=== PATIENT | female | born 1955 | race Caucasian/White ===

== ENCOUNTER 2016-10-30 15:22 | Emergency (ER) | payer SELFPAY ==
--- NOTE | 2016-10-30 19:29 | RAD ---
INDICATION: Knee pain x2 weeks after striking knee on door. COMPARISON: None TECHNIQUE: 4 view radiograph of the left knee. FINDINGS: The visualized bones are well-corticated and properly aligned. The joint spaces are properly maintained. There is no radiographic evidence of joint effusion. There is no acute fracture, dislocation or other focal bony abnormality. IMPRESSION: Normal knee radiograph as described above. If the patient's symptoms persist, follow-up imaging is recommended.
[2016-10-30] MEDS ORDERED: Naproxen TAB* 250 MG PO ONE (19:36)
--- NOTE | 2016-10-30 19:44 | ED ---
Lower Extremity - HPI Summary HPI Summary: 61 female presents with complaints of left anterior knee pain that began after hitting it against a door with a metal hinge sticking out, striking her left knee, that happened 2 weeks ago while at work. Patient states it hurt after she hit it and improved over the next couple of days, however never improved fully as it has still be causing her pain. Patient states the pain worsens when laying down in bed. She has been taking Advil in the morning with relief. Admits to swelling that has since improved. Denies bruising. Is able to bear weight and walk, however it does make the pain worse. Admits to some chronic knee pain bilaterally. Does not follow up with a doctor annually. Denies any known PMHx. Denies ankle or hip pain. Did not hit head or LOC. No other complaints at this time. Denies numbness/tingling. - History of Current Complaint Chief Complaint: EDExtremityLower Stated Complaint: LEFT KNEE INJURY-WORK INJURY Time Seen by Provider: 10/30/16 16:40 Hx Obtained From: Patient Mechanism Of Injury: Blunt Trauma - hit on metal hinge on a door Onset of Pain: Immediate, Post Accident Onset/Duration: Still Present - 2 weeks ago Severity Initially: Moderate Severity Currently: None Pain Intensity: 0 Pain Scale Used: 0-10 Numeric Timing: Intermittent Location: Is Discrete @ - left knee Character Of Pain: Dull, Aching Associated Signs And Symptoms: Positive: Swelling Aggravating Factor(s): Standing, Ambulation Alleviating Factor(s): Rest Able to Bear Weight: Yes Related History: Occupational Injury - Allergies/Home Medications Allergies/Adverse Reactions: Allergies Allergy/AdvReac Type Severity Reaction Status Date / Time No Known Allergies Allergy Verified 10/30/16 19:53 PMH/Surg Hx/FS Hx/Imm Hx Endocrine/Hematology History: Denies: Hx Anticoagulant Therapy, Hx Diabetes Cardiovascular History: Denies: Hx Hypertension Respiratory History: Denies: Hx Asthma - Surgical History Surgery Procedure, Year, and Place: none - Immunization History Immunizations Up to Date: Yes Infectious Disease History: No Infectious Disease History: Denies: Traveled Outside the [place] in Last 30 Days - Family History Known Family History: Positive: None - Social History Alcohol Use: None Substance Use Type: Reports: None Smoking Status (MU): Never Smoked Tobacco Review of Systems Constitutional: Negative Cardiovascular: Negative Respiratory: Negative Gastrointestinal: Negative Positive: Arthralgia, Myalgia, Edema - left knee Skin: Negative Neurological: Negative All Other Systems Reviewed And Are Negative: Yes Physical Exam Triage Information Reviewed: Yes Vital Signs On Initial Exam: Initial Vitals Temp Pulse Resp BP Pulse Ox 98.6 F 91 18 158/80 97 10/30/16 15:35 10/30/16 15:35 10/30/16 15:35 10/30/16 15:35 10/30/16 15:35 elevated BP noted. last bp 147/82. Patient was recommended to have re-check at PCP within 2 weeks. Vital Signs Reviewed: Yes Appearance: Positive: Well-Appearing, No Pain Distress, Well-Nourished Skin: Positive: Warm, Skin Color Reflects Adequate Perfusion, Dry. Negative: Cold, Numb, Cyanosis @, Pale, Erythema @ Head/Face: Positive: Normal Head/Face Inspection Eyes: Positive: Normal, Conjunctiva Clear ENT: Positive: Normal ENT inspection, Hearing grossly normal Neck: Positive: Supple, Nontender Respiratory/Lung Sounds: Positive: Clear to Auscultation, Breath Sounds Present. Negative: Rales, Rhonchi, Wheezes Cardiovascular: Positive: Normal, RRR, Pulses are Symmetrical in both Upper and Lower Extremities - 2+ pedal b/l. Negative: Murmur, Rub, Leg Edema Left, Leg Edema Right Abdomen Description: Positive: Nontender, Soft Bowel Sounds: Positive: Present Musculoskeletal: Positive: Normal, Strength/ROM Intact, Pain @ - anterior left knee over area of patellar tendon and laterally on palpation, minimal. no ecchymosis or edema noted. no erythema or open wounds. no crepitus or obvious deformity noted. no step-off. patella and patellar tendon intact. (-) unger test.. Negative: Limited @, Interruption @, Geno Sign Left, Geno Sign Right, Edema Left, Edema Right Neurological: Positive: Normal, Sensory/Motor Intact - sensation intact, Alert, Oriented to Person Place, Time, CN Intact II-III, Reflexes Intact - not assessed on left patella, NV Bundle Intact Distally, Normal Gait Psychiatric: Positive: Normal AVPU Assessment: Alert Diagnostics - Vital Signs Vital Signs Temp Pulse Resp BP Pulse Ox 10/30/16 15:37 98.6 F 90 18 160/73 99 10/30/16 15:35 98.6 F 91 18 158/80 97 - Laboratory Lab Statement: Any lab studies that have been ordered have been reviewed, and results considered in the medical decision making process. - Radiology left knee Xray Interpretation: No Acute Changes - Normal knee radiograph as described above. If the patient's symptoms persist, follow-up imaging is recommended. Radiology Interpretation Completed By: Radiologist Lower Extremity Course/Dx - Course Course Of Treatment: patient was given naproxen while in ED. pain was minimal. X -ray obtained and negative. Patient agreed with naproxen, ice and rest. Follow up with PCP for further imaging and evaluation if symptoms persist. Aware of worsening signs and symptoms to watch out for. No concern for any emergent issues at this time. Contusion versus tendonitis from injury versus chronic. - Diagnoses Differential Diagnosis/HQI/PQRI: Positive: Arthritis, Contusion, Dislocation, Fracture (Closed), Sprain, Strain, Tendonitis Provider Diagnoses: Knee pain, left, Tendonitis of left knee Discharge - Discharge Plan Condition: Stable Disposition: HOME Prescriptions: Naproxen TAB* [Naprosyn 375 mg TAB*] 375 mg PO BID #30 tab Patient Education Materials: Knee Pain (ED), Patellar Tendinitis (ED) Forms: *Work Release Referrals: No Primary Care Phys,NOPCP [Primary Care Provider] - [facility] [Outside] Additional Instructions: Take prescribed medication as directed for pain and inflammation. Rest, Ice and elevate the knee multiple times daily, 20 minutes on and 20 minutes off. Try applying heat after 3-5 days, alternating. Follow up with primary care provider within 2 weeks for further imaging and evaluation. If symptoms worsen or new symptoms develop please return or seek medical attention promptly.
[2016-10-30 19:56] VITALS: BP 147/82
== END 2016-10-30 20:23 | disposition home or self-care (01) ==
LOC: ED 15:22
DX: M76.9 Unspecified enthesopathy, lower limb, excluding foot (principal); M25.562 Pain in left knee; W22.8XXA Striking against or struck by other objects, initial encounter; Y92.9 Unspecified place or not applicable
CPT/HCPCS: 99282; A9270-GY

== ENCOUNTER 2019-01-17 16:38 | Observation (INO) | payer BC, OTHER ==
[2019-01-17] MEDS ORDERED: Nitroglycerin TAB 0.4 MG* 0.4 MG TAB SL PRN (16:58)
[2019-01-17] MEDS ORDERED: Aspirin 81 mg CHEW TAB* 81 MG TAB.CHEW PO ONE (16:58)
--- NOTE | 2019-01-17 17:03 | ED ---
HPI Chest Pain - HPI Summary HPI Summary: Pt is a 63 y/o F presenting to the ED with a chief complaint of chest pain in her upper sternal region that began around 1200. She describes it as pressure, and it is accompanied by a tingling sensation in her R arm. She denies SOB, diaphoresis, nausea, myalgia or edema in her legs, as well as recent surgeries or travel. - History of Current Complaint Chief Complaint: EDChestWallPain Time Seen by Provider: 01/17/19 16:49 Hx Obtained From: Patient Onset/Duration: Started Hours Ago, Still Present Timing: Constant, Lasting Hours Initial Severity: Mild Current Severity: None Pain Intensity: 0 Pain Scale Used: 0-10 Numeric Chest Pain Location: Diffuse, Upper Sternal Chest Pain Radiates: No Character: Pressure/Squeezing Aggravating Factor(s): Nothing Alleviating Factor(s): Nothing Associated Signs and Symptoms: Positive: Chest Pain, Tingling - R arm. Negative : Shortness of Breath, Diaphoresis, Nausea, Calf Pain/Swelling - Allergy/Home Medications Allergies/Adverse Reactions: Allergies Allergy/AdvReac Type Severity Reaction Status Date / Time No Known Allergies Allergy Verified 10/30/16 19:53 Home Medications: Home Medications Allopurinol 100 mg PO DAILY 01/17/19 [History Confirmed 01/17/19] Naproxen TAB* [Naprosyn 375 mg TAB*] 375 mg PO BID PRN 01/17/19 [History Confirmed 01/17/19] PMH/Surg Hx/FS Hx/Imm Hx Previously Healthy: Yes Endocrine/Hematology History: Denies: Hx Anticoagulant Therapy, Hx Diabetes Cardiovascular History: Denies: Hx Hypertension Respiratory History: Denies: Hx Asthma Musculoskeletal History: Reports: Hx Gout - Surgical History Surgery Procedure, Year, and Place: none Infectious Disease History: No Infectious Disease History: Denies: Traveled Outside the [place] in Last 30 Days - Family History Known Family History: Positive: Other - father had stroke - Social History Alcohol Use: None Hx Substance Use: No Substance Use Type: Reports: None Hx Tobacco Use: No Smoking Status (MU): Never Smoked Tobacco Review of Systems Negative: Skin Diaphoresis Positive: Chest Pain Negative: Shortness Of Breath Negative: Nausea Negative: Myalgia, Edema Positive: Paresthesia - R arm All Other Systems Reviewed And Are Negative: Yes Physical Exam Triage Information Reviewed: Yes Vital Signs On Initial Exam: Initial Vitals Temp Pulse Resp BP Pulse Ox 99.2 F 101 18 164/109 97 01/17/19 16:38 01/17/19 16:38 01/17/19 16:38 01/17/19 16:38 01/17/19 16:38 Vital Signs Reviewed: Yes Diagnostics - Vital Signs Vital Signs Temp Pulse Resp BP Pulse Ox 01/17/19 16:38 99.2 F 101 18 164/109 97 - Laboratory Result Diagrams: 01/17/19 17:13 01/17/19 17:13 Lab Statement: Any lab studies that have been ordered have been reviewed, and results considered in the medical decision making process. - Radiology CXR Radiology Interpretation Completed By: Radiologist Summary of Radiographic Findings: 1. Minimal RIGHT basilar atelectasis. No evidence for pulmonary edema. ED physician has reviewed this report. - EKG 1943 Cardiac Rate: NL - 91bpm EKG Rhythm: Sinus Rhythm ST Segment: Non-Specific Ectopy: None Summary of EKG Findings: EKG at 1644 shows NSR at 91bpm with nml intervals, T- wave inversion in lead III, and a Q wave in lead III. 1644 Cardiac Rate: NL - 91bpm EKG Rhythm: Sinus Rhythm ST Segment: Non-Specific Ectopy: None Summary of EKG Findings: EKG at 1644 shows NSR at 91bpm with nml intervals, T- wave inversion in lead III, and a Q wave in lead III. 1828 Cardiac Rate: NL - 99bpm EKG Rhythm: Sinus Rhythm ST Segment: Non-Specific Ectopy: None EKG Comparison: No Significant Change Summary of EKG Findings: EKG at 1828 shows NSR at 99bpm with T wave inversion in lead III, unchanged from initial EKG. Re-Evaluation - Re-Evaluation 1st re-eval Re-Evaluation Time: 17:40 Change: Improved Comment: Pt's chest pain has improved slightly after 1 ntg, she is now c/o nausea. Will give Zofran. 1936 Re-Evaluation Time: 19:37 Change: Improved Comment: Pt is completely asymptomatic. Given her heart score of four, I offered her inpatient admission. She is unsure and would like to think about it. 2nd re-eval Re-Evaluation Time: 19:37 Change: Unchanged Comment: Pt is completely asymptomatic. Given her heart score of four, I offered her inpatient admission. She is unsure and would like to think about it. 3rd re-eval Re-Evaluation Time: 20:05 Change: Unchanged Comment: I convinced the pt to stay as inpatient at [facility] [place]. She remains tachycardic. Chest Pain Course/Dx - Course Course Of Treatment: Patient is here with chest pain. Patient had chest pain upon arrival and resolved with nitroglycerin. Patient no evidence of STEMI on EKG with a normal serial EKG and troponin. Patient had a negative d-dimer for blood clot. Patient no risk factors for PE. Patient had a heart score of 4 so she was admitted to the hospital for further evaluation. Patient did become tachycardic while in the ED and was given 1 L fluids. - Diagnoses Provider Diagnoses: Tachycardia, Chest pain, Right arm numbness - Provider Notifications Discussed Care Of Patient With: Girish Crane Time Discussed With Above Provider: 20:10 Instructed by Provider To: Admit As Inpatient Discharge - Sign-Out/Discharge Documenting (check all that apply): Patient Departure - Discharge Plan Condition: Stable Disposition: ADMITTED TO [facility] Referrals: So Infante MD [Primary Care Provider] - - Billing Disposition and Condition Condition: STABLE Disposition: Admitted to [facility] - Attestation Statements Document Initiated by Elba: Yes Documenting Scribe: Evelyne Chi Provider For Whom Elba is Documenting (Include Credential): Mickey Tomlinson MD. Scribe Attestation: I, Evelyne Chi, scribed for Mickey Tomlinson MD. on 01/17/19 at 203. Scribe Documentation Reviewed: Yes Provider Attestation: The documentation as recorded by the Evelyne goodman accurately reflects the service I personally performed and the decisions made by me, Mickey Tomlinson MD. Status of Scribe Document: Viewed Consult Consult: 2009 - I spoke with Dr. Crane who will be evaluating the patient for admission.
[2019-01-17 17:23] LABS: ABS Basophils 0.1 10^3/ul (0-0.2); ABS Eosinophils 0.1 10^3/ul (0-0.6); ABS Monocytes 0.7 10^3/ul (0-0.8); ABS Neutrophils 6.8 10^3/ul (1.5-7.7); Eosinophil % 0.7 %; Hematocrit 42 % (35-47); Hemoglobin 14.4 g/dL (12.0-16.0); Lymphocyte % 20.9 %; Mean Corpuscular HGB Conc 34 g/dL (31-36); Mean Corpuscular Hemoglobin 32 pg (27-31); Mean Corpuscular Volume 94 fL (80-97); Mean Platelet Volume 8.4 fL (7.4-10.4); Platelet Count 295 10^3/uL (150-450); Red Blood Count 4.49 10^6 /uL (3.70-4.87); Red Cell Distribution Width 14 % (10-15); White Blood Count 9.7 10^3/uL (3.5-10.8)
[2019-01-17] MEDS ORDERED: Ondansetron INJ* 2 MG/ML VIAL IV ONE (17:40)
[2019-01-17 17:44] LABS: Albumin 4.4 g/dL (3.2-5.2); Albumin/Globulin Ratio 1.3 (1-3); BUN/Creatinine Ratio 27.1 (8-20); Calcium 9.8 mg/dL (8.6-10.3); EGFR Non-African American 67.8 (>60); Globulin 3.4 g/dL (2-4); Potassium 3.8 mmol/L (3.5-5.0); Total Bilirubin 0.4 mg/dL (0.2-1.0); Total Protein 7.8 g/dL (6.4-8.9)
[2019-01-17] MEDS ORDERED: NS 0.9% 1000 ML** 1,000 ML IV ONE (20:05)
[2019-01-17] MEDS ORDERED: NS 0.9% 1000 ML** 1,000 ML IV SCH (22:00)
--- OUTSIDE RECORDS SUMMARY | 2019-01-17 23:27 | XMS REPORT | Continuity of Care Document ---
:1955 External Reference #:[id number] Author Name Gladys Ren Care Team Providers Name Role Phone So Infante M.D. Primary Care Physician Unavailable Payers Date Identification Numbers Payment Provider Subscriber Policy Number: [id number] [facility] Eli Morrison PayID: [id number] [address] [place] [address] Problems Active Problems Provider Date Gout Mckenzie Parisi M.D. 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 Then 1 Hour Later Take 1 Tablet; Maximum Daily Dose=3 Multivitamin Women 1 by mouth every Unknown day Tablets Ibuprofen 200 1-2 Tabs every Unknown 200mg 6 hours as Tablets Needed History Medications Cyclobenzaprine HCL one tablet by 30tabs M54.5 Susy Haji, 2017 - 5mg mouth twice M.D. 10/11/2018 Tablets daily as needed for back pain No Active Medications Unknown 09/06/2017 - 02/11/2018 Aleve 1-2 tabs by Unknown - 220mg Tablets mouth 2x daily 10/11/2018 as needed for 1 weeks. Vital Signs Date Vital Result Comment 01/11/2019 3:26pm Height 63 inches 5'3" Weight 205.00 lb Heart Rate 83 /min BP Systolic Sitting 118 mmHg Rue reg cuff BP Diastolic Sitting 66 mmHg Rue reg cuff O2 % BldC Oximetry 96 % BMI (Body Mass Index) 36.3 kg/m2 11/22/2018 10:15am Height 63 inches 5'3" Heart Rate 86 /min BP Systolic Sitting 114 mmHg BP Diastolic Sitting 84 mmHg Body Temperature 98.2 F O2 % BldC Oximetry 96 % 10/11/2018 4:38pm Height 63 inches 5'3" Weight 220.00 lb Heart Rate 86 /min BP Systolic Sitting 125 mmHg BP Diastolic Sitting 78 mmHg BMI (Body Mass Index) 39.0 kg/m2 02/11/2018 3:00pm Height 63 inches 5'3" Weight 218.00 lb Heart Rate 96 /min BP Systolic Sitting 116 mmHg BP Diastolic Sitting 74 mmHg BP Systolic Standing 114 mmHg BP Diastolic Standing 74 mmHg Respiratory Rate 16 /min O2 % BldC Oximetry 95 % on Ra BMI (Body Mass Index) 38.6 kg/m2 09/06/2017 3:17pm Height 63 inches 5'3" Weight 224.00 lb Heart Rate 93 /min BP Systolic 122 mmHg BP Diastolic 81 mmHg Body Temperature 97.1 F O2 % BldC Oximetry 97 % BMI (Body Mass Index) 39.7 kg/m2 Results Test Date Facility Test Result H/L Range Note Laboratory test 01/11/2019 [facility] Cytology <pending> finding [address] [place] [address] [phone] Laboratory test 12/24/2018 [facility] Uric Acid 9.9 mg/dL High 2.3-6.6 finding [address] [place] [address] [phone] Basic Metabolic 12/24/2018 [facility] Sodium 141 mmol/L Normal 135-145 Panel [address] [place] [address] [phone] Potassium 4.1 mmol/L Normal 3.5-5.0 Chloride 106 mmol/L Normal 101-111 Co2 Carbon Dioxide 30 mmol/L Normal 22-32 Anion Gap 5 mmol/L Normal 2-11 Glucose 90 mg/dL Normal 70-100 Blood Urea Nitrogen 21 mg/dL Normal 6-24 Creatinine 0.92 mg/dL Normal 0.51-0.95 BUN/Creatinine Ratio 22.8 High 8-20 Calcium 9.4 mg/dL Normal 8.6-10.3 Egfr Non- 61.9 >60 Egfr 74.8 >60 1 Laboratory 11/05/2018 [facility] TSH (Thyroid 1.28 Normal 0.34 -5.60 test finding [address] Stim Horm) mcIU/[place] [address] [phone] Hemoglobin A1c (Glyco HGB) 6.0 % High 4.0-5.6 2 Urinalysis Profile 02/12/2018 [facility] Urine Color Yellow [address] [place] [address] [phone] Urine Appearance Clear Urine Specific Viola 1.019 Normal 1.010-1.030 Urine pH 5.0 Normal 5-9 Urine Urobilinogen Negative Negative Urine Ketones Negative Negative Urine Protein Negative Negative Urine Leukocytes 1+ Abnormal Negative Urine Blood Negative Negative Urine Nitrite Negative Negative Urine Bilirubin Negative Negative Urine Glucose Negative Negative Urine White Blood Cell Trace(0-5/hpf) Absent Urine Red Blood Cell Absent Absent Urine Bacteria Absent Absent Urine Squamous Epithelial Cell Present Abnormal Absent Urine Culture And 02/12/2018 [facility] Urine SEE RESULT [address] [place] [address] [phone] Comp Metabolic 09/11/2017 [facility] Sodium 142 mmol/L Normal 139-[address] [place] [address] [phone] Potassium 4.4 mmol/L Normal 3.5-5.0 Chloride 107 mmol/L Normal 101-111 Co2 Carbon Dioxide 30 mmol/L Normal 22-32 Anion Gap 5 mmol/L Normal 2-11 Glucose 90 mg/dL Normal 70-100 Blood Urea Nitrogen 21 mg/dL Normal 6-24 Creatinine 0.82 mg/dL Normal 0.51-0.95 BUN/Creatinine Ratio 25.6 High 8-20 Calcium 9.3 mg/dL Normal 8.6-10.3 Total Protein 7.4 g/dL Normal 6.4-8.9 Albumin 4.1 g/dL Normal 3.2-5.2 Globulin 3.3 g/dL Normal 2-4 Albumin/Globulin Ratio 1.2 Normal 1-3 Total Bilirubin 0.50 mg/dL Normal 0.2-1.0 Alkaline Phosphatase 75 U/L Normal 34-104 Alt 17 U/L Normal 7-52 Ast 19 U/L Normal 13-39 Egfr Non- 70.9 >60 Egfr 91.1 >60 4 Lipid Profile 09/11/2017 [facility] Triglycerides 139 mg/dL 5 (Trig/Chol/HDL) [address] [place] [address] [phone] Cholesterol 234 mg/dL 6 HDL Cholesterol 50.9 mg/dL 7 LDL Cholesterol 155 mg/dL 8 Laboratory 09/11/2017 [facility] TSH (Thyroid 1.06 Normal 0.34 -5.60 9 test finding [address] Stim Horm) mcIU/[place] [address] [phone] 1 Because ethnic data is not always readily available, this report includes an eGFR for both -Americans and non- Americans. The National Kidney Disease Education Program (NKDEP) does not endorse the use of the MDRD equation for patients that are not between the ages of 18 and 70, are , have extremes of body size, muscle mass, or nutritional status, or are non- or non-. According to the National Kidney Foundation, irrespective of diagnosis, the stage of the disease is based on the level of kidney function: Stage Description GFR(mL/min/1.73 m(2)) 1 Kidney damage with normal or decreased GFR 90 2 Kidney damage with mild decrease in GFR 60-89 3 Moderate decrease in GFR 30-59 4 Severe decrease in GFR 15-29 5 Kidney failure <15 (or dialysis) 2 Therapeutic target for the treatment of diabetes mellitus patients is <7% HBA1C, and in selective patients <6.0%. Please refer to [place] Diabetes Association diabetic care guidelines for further information. 3 SEE RESULT BELOW Name: ELI MORRISON : [address]: Day [place] Acct: [id number] Unit: [id number] AGE: 62 Location: LAB Re02/12/18 SEX: F Status: REG REF SPEC: [id number] MONICA: 02/12/18-1005 [facility] : Day AU REQ: [id number] RECD: 02/12/18 STATUS: COMP _ SOURCE: URINE SPDESC: ORDERED: Urine Culture Urine Source: Clean Catch Procedure Result Reported Site Urine Culture Final 02/13/18- 1213 ML Organism 1 STREP GROUP B [place] Count 1-10,000 (Few) CFU/ML Organism 2 NORMAL SHERRILL [place] Count 1-10,000 (Few) CFU/ML Susceptibility testing of penicillins and other B-lactams approved by FDA for treatment of Streptococcus pyogenes (Group A Strep) and Streptococcus agalactiae (Group B Strep) is not necessary for clinical purposes and need not be done routinely, since as with vancomycin, resistant strains have not been recognized. (CLSI V652-U96;p.66) Positive isolates will be saved for one week. Please call the Microbiology Laboratory if further susceptibility testing is needed. * ML - Main Lab . END OF REPORT DEPARTMENT OF PATHOLOGY, [address] [place] [address] Thaddeus Valdivia M.D. Director [facility] # [id number] 4 Because ethnic data is not always readily available, this report includes an eGFR for both -Americans and non- Americans. The National Kidney Disease Education Program (NKDEP) does not endorse the use of the MDRD equation for patients that are not between the ages of 18 and 70, are , have extremes of body size, muscle mass, or nutritional status, or are non- or non-. According to the National Kidney Foundation, irrespective of diagnosis, the stage of the disease is based on the level of kidney function: Stage Description GFR(mL/min/1.73 m(2)) 1 Kidney damage with normal or decreased GFR 90 2 Kidney damage with mild decrease in GFR 60-89 3 Moderate decrease in GFR 30-59 4 Severe decrease in GFR 15-29 5 Kidney failure <15 (or dialysis) 5 Desirable: <150 Borderline High: 150-199 High: 200-499 Very High: >500 6 Desirable: <200 Borderline High: 200-239 High: >239 7 Low: <40 Desirable: 40-60 High: >60 8 Desirable: <100 Near Optimal: 100-129 Borderline High: 130-159 High: 160-189 Very High: >189 9 FASTING Encounters Type Date Location Provider Dx Diagnosis Office Visit 11/22/2018 [facility] Mckenzie Parisi, M10.072 Idiopathic gout, 10:[facility] foot Office Visit 10/11/2018 [facility] So Infante MD E66.9 Obesity, 4:40p [facility] unspecified Z71.3 Dietary counseling and surveillance Office Visit 02/11/2018 4:00p [facility] Day Marker, R10.31 Right lower [facility] R[facility]-C quadrant pain M54.5 Low back pain R42 Dizziness and giddiness R35.0 Frequency of micturition Office Visit 09/06/2017 3:00p [facility] Saadia E66.09 Other obesity Medicine - [address] due to excess R calories Z12.31 Encntr screen mammogram for malignant neoplasm of breast Plan of Treatment Future Appointment(s):01/15/2020 4:00 pm - So Infante MD at [facility] - So Infante MDZ00.00 Encounter for general adult medical examination without abnormal findingsComments:You are due for colon/ breast/cervical cancer screening. To that effect, I have ordered the appropriate tests or referrals.Your cholesterol profile and other labs were reviewed today.Remember to wear sunscreen and see your dentist regularly.You should see an sales office assistant annually.For optimum health, I recommend some form of regular exercise and integrating a lot of plant-based foods into your daily diet.Follow up:Physical in 1 yearZ12.31 Encounter for screening mammogram for malignant neoplasm of breastNew Xrays:MG Screening Mammogram, Ordered: 01/11Comments:I have ordered your routine screening mammogram. The imaging department will give you your results at the time of your visit.Z12.11 Encounter for screening for malignant neoplasm of colonNew Orders:Cologuard, Ordered: 01/11/19Comments:You are due for colon cancer screening. I have ordered a Cologuard for you. You will receive your kit in the mail. I will contact you with your results. If this should be abnormal you will need a colonoscopy.Z12.4 Encounter for screening for malignant neoplasm of cervixComments:I will send you a letter with results of pap in 1-2 bdjycV63.072 Idiopathic gout, left ankle and footNew Labs:Uric Acid, Scheduled: Comments:continue taking allopurinol, check your uric acid levels in .1 Polyp of cervix uteriComments:I am referring you to Dr. Duggan to get that polyp removedReferral:Abimbola Duggan MD, fisheries management biologist/Phys/NgnuvQ38.9 Unspecified visual disturbanceReferral:Jese De Jesus MD, Ophthalmology
--- NOTE | 2019-01-18 00:37 | HP ---
CC: So Infante MD ADMISSION HISTORY AND PHYSICAL: DATE OF ADMISSION: 01/17/19 CHIEF COMPLAINT: Chest pain. HISTORY OF PRESENT ILLNESS: This is a 63-year-old female with past medical history of gout and obesi ty who came in due to chest pain. The patient stated that her pain started right after her lunch rad iating to her neck and she started having numbness and tingling on the right arm. Pain was initially noted to be 8/10 in intensity and relieved almost completely with sublingual Nitro, and during my ev aluation, was only minimal; about 1 to 2/10 in intensity. She did have some nausea, but this was aft er she arrived to the ER and got some Nitro. She, otherwise, offers no shortness of breath, no palpi tations or other chest pain, and no other breathing difficulty. No other vomiting or diarrhea or abd ominal pain. PAST MEDICAL HISTORY: As mentioned: 1. Gout. 2. Obesity. PAST SURGICAL HISTORY: She did not have any surgery in the past. HOME MEDICATIONS: The patient is currently taking naproxen 325 mg p.o. b.i.d. as needed and allopuri nol 100 mg oral daily. ALLERGIES: No known drug allergies. FAMILY HISTORY: Father at age 59 with stroke and there is a significant family history of heart attacks on the father's side. Mother at age 44 with breast cancer complications. SOCIAL HISTORY: The patient quit smoking about 4 years ago, but does have exposure to secondhand smo sultana and prior to that, only used to smoke 1 or 2 cigarettes with friends when she was 23. Denies an y drug or alcohol use. 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 She is and has kids and grand kids . She is a full code. REVIEW OF SYSTEMS: A 14-point review of systems did not reveal any information, other than what is s tated in the HPI. PHYSICAL EXAMINATION GENERAL: The patient is awake, alert and oriented x3. She does not appear to be in any acute respir atory distress. VITAL SIGNS: In the ER, temperature was documented at 99.4 degrees Fahrenheit, heart rate 104, respi ration rate 18, saturation 97% on room air, BP was noted to be 164/90. HEAD AND NECK: Atraumatic, normocephalic. Bilateral pupils are reactive. Oral mucosa was moist. N rodolfo: Supple. No jugular venous distention. LUNGS: Clear to auscultation bilaterally. No wheezing, rhonchi, or rales. HEART: S1, S2. Regular rate and rhythm. ABDOMEN: Soft, nontender, and nondistended. EXTREMITIES: No cyanosis, clubbing, or edema. DIAGNOSTIC STUDIES/LAB DATA: Labs: CBC was unremarkable. Coagulation profile shows less than 200 D-dimer. Comprehensive metabolic panel was unremarkable. Two sets of troponin were noted to be nega tive. Chest x-ray was read as minimal right basilar atelectasis. No evidence of pulmonary edema. Two EKGs were performed in the ER. First one shows sinus rhythm at 99 beats per minute without any S T elevation. There was some evidence of T-wave inversion in lead III which was present in both EKGs. Second EKG shows heart rate a little better at 91. IMPRESSION: This is a 63-year-old female with gout and obesity and significant family history of str alexia and heart attacks at a young age, here due to chest pain and 2 sets of cardiac enzymes were noted to be negative. ASSESSMENT AND PLAN: 1. Chest pain, rule out any acute coronary syndrome. We will get a stress test in the morning and a lso an echocardiogram. 2. Elevated blood pressure. We will consider starting the patient on metoprolol given her tachycard ia as well. 3. Tachycardia. We will get TSH and consider reflex free T4 if necessary. 4. Risk factor stratification. We will check A1c and lipid panel in the morning as well. 5. DVT prophylaxis. With sequential compression device. [id number]/[facility] #: [id number]
[2019-01-18 05:09] LABS: ABS Lymphocytes 1.3 10^3/ul (1.0-4.8); ABS Monocytes 1.3 10^3/ul (0-0.8); ABS Neutrophils 7.9 10^3/ul (1.5-7.7); Eosinophil % 0.1 %; Hematocrit 36 % (35-47); Hemoglobin 12.4 g/dL (12.0-16.0); Lymphocyte % 12.5 %; Mean Corpuscular HGB Conc 34 g/dL (31-36); Mean Corpuscular Hemoglobin 32 pg (27-31); Mean Corpuscular Volume 93 fL (80-97); Mean Platelet Volume 8.6 fL (7.4-10.4); Nucleated Red Blood Cells % 0.1; Platelet Count 266 10^3/uL (150-450); Red Cell Distribution Width 14 % (10-15); White Blood Count 10.6 10^3/uL (3.5-10.8)
[2019-01-18 05:30] LABS: Calcium 8.9 mg/dL (8.6-10.3); EGFR African American 94.7 (>60); EGFR Non-African American 78.3 (>60); HDL Cholesterol 42.1 mg/dL; Potassium 3.8 mmol/L (3.5-5.0)
[2019-01-18 05:45] LABS: TSH (Thyroid Stimulating Horm) 0.7 mcIU/mL (0.34-5.60)
[2019-01-18] MEDS ORDERED: Perflutren Lipid Microsphere* 3 ML VIAL ONE ×2 (08:05→08:07)
[2019-01-18] MEDS ORDERED: Metoprolol Tartrate TAB* 25 MG PO SCH (09:00)
--- NOTE | 2019-01-18 11:14 | ECHO ---
*[facility]* [place] [address] Fax #: [phone] Transthoracic Echocardiogram Patient: Eli Morrison : 1955 Study Date: 01/18/2019 Age: 63 Gender: F HR: 97 bpm Height: 63 in /160 cm BSA: 1.94 m^2 Weight: 201.6 lb /91.6 kg BMI: 35.8 kg/m^2 *Staff Writer: * Jina Jo RDCS RN *Referring Physician: * Girish Crane *Reading Physician: * Rhonda Escobedo MD Indications: Chest Pain, unspecified. History: Gout. Risk factors: Former tobacco use. Obese. Family history is significant for coronary artery disease. Conclusions Summary: - Left ventricle: The cavity size is mildly reduced. Wall thickness is mildly increased. Systolic function is normal. The estimated ejection fraction is 60-65%. Wall motion is normal; there are no regional wall motion abnormalities. - Right ventricle: Systolic function is normal. - Tricuspid valve: There is trace regurgitation. - Pulmonary arteries: Systolic pressure can not be accurately estimated. - No prior echocardiogram to compare. Study data: Transthoracic echocardiogram. Procedure: Transthoracic echocardiography was performed. The study was technically limited due to body habitus and smoking history. Intravenous Definity 2 ml was administered for image enhancement. Complete 2D, spectral Doppler, and color flow Doppler. Location: Bedside. Patient status: Observation. Patient room number: 431. Rhythm: Normal sinus rhythm. Findings Left ventricle: The cavity size is mildly reduced. Wall thickness is mildly increased. Systolic function is normal. The estimated ejection fraction is 60-65%. Wall motion is normal; there are no regional wall motion abnormalities. There is no consistent Doppler evidence of clinically significant diastolic dysfunction. Right ventricle: The cavity size is normal. Systolic function is normal. Left atrium: The atrium is normal in size. Right atrium: The atrium is normal in size. Mitral valve: The leaflets are mildly thickened. There is no evidence of stenosis. There is no regurgitation. Aortic valve: Not well visualized. The valve is probably trileaflet. The leaflets are mildly thickened. There is no evidence of stenosis. There is no regurgitation. Tricuspid valve: The valve is structurally normal. There is no evidence of stenosis. There is trace regurgitation. Pulmonic valve: The valve is structurally normal. There is no evidence of stenosis. There is trace regurgitation. Aorta: Aortic root: The aortic root is not dilated. Ascending aorta: The ascending aorta is not dilated. Aortic arch: The aortic arch is not dilated. Pericardium: There is no pericardial effusion. Pulmonary arteries: The main pulmonary artery is normal-sized. Systolic pressure can not be accurately estimated. Systemic veins: Inferior vena cava: Not visualized. Measurements Left ventricle Value Ref Aortic valve Value Ref SHAMEKA, LAX (L) 3.5 cm 3.8 - Kirill diam, ED 1.7 cm ---- 5.2 Kirill diam/bsa, ED 0.9 cm/m^2 ---- ESD, LAX 2.4 cm 2.2 - Peak v, S 1.43 m/sec ---- 3.5 VTI, S 26.1 cm ---- FS, LAX 34 % 27 - 45 Mean grad, S 5.0 mm Hg ---- PW, ED (H) 1.0 cm 0.6 - Peak grad, S 8.0 mm Hg ---- 0.9 LVOT/AV, VTI ratio 0.85 ---- IVS/PW, ED 1.18 -------- E', lat kirill, TDI 10.3 cm/sec >=10.0 Mitral valve Value Re f E/e', lat kirill, TDI 7 -------- Peak E 0.77 m/sec ---- E', med kirill, TDI 9.0 cm/sec >=7.0 Peak A 0.82 m/sec -- -- E/e', med kirill, TDI 9 -------- Decel time 275 ms ---- E', avg, TDI 9.7 cm/sec -------- Peak grad, D 2.4 mm Hg ---- E/e', avg, TDI 8 <=14 Peak E/A ratio 0.9 -- -- LVOT Value Ref Pulmonic valve Value Ref Peak fabrice, S 1.12 m/sec -------- Peak v, S 0.74 m/sec ---- VTI, S 22.1 cm -------- Peak grad, S 2.0 mm Hg ---- Peak grad, S 5 mm Hg -------- Mean grad, S 3 mm Hg -------- Aortic root Value Ref Root diam 3.1 cm <4.1 Ventricular septum Value Ref IVS, ED (H) 1.2 cm 0.6 - Ascending aorta Value Ref 0.9 AAo AP diam, S 2.7 cm ---- Right ventricle Value Ref Aortic arch Value Ref SHAMEKA, LAX 3.0 cm -------- Arch diam 2.5 cm ---- SHAMEKA minor ax, A4C 2.6 cm 1.9 - mid 3.5 Decending aorta Value Ref Amadou peak fabrice 0.77 m/sec ---- Left atrium Value Ref ML dim, A4C 4.4 cm -------- SI dim, A4C 5.5 cm -------- Vol/bsa, ES, 1-p 35 ml/m^2 11 - 40 A4C Vol/bsa, ES, A/L 26 ml/m^2 16 - 34 Right atrium Value Ref ML dim, ES, A4C 3.6 cm 2.6 - 4.4 SI dim, ES, A4C 5.0 cm 3.4 - 5.3 Estimated RAP 8 mm Hg -------- Legend: (L) and (H) phillip values outside specified reference range. Prepared and electronically signed by Rhonda Escobedo MD 01/18/2019 11:14
[2019-01-18 13:25] VITALS: BP 122/69
[2019-01-18] MEDS ORDERED: Metoprolol Succinate XL TAB* 25 MG PO ONE (13:41)
--- NOTE | 2019-01-18 20:28 | DS ---
CC: Dr. So Infante * DISCHARGE SUMMARY: DATE OF ADMISSION: 01/17/19 DATE OF DISCHARGE: 01/18/19 PRIMARY CARE PROVIDER: Dr. So Infante. ATTENDING PHYSICIAN: Dr. Belinda Castro * (dictated by Jennifer Pham NP). PRIMARY DIAGNOSES: 1. Chest pain, suspect gastrointestinal etiology. 2. Hypertension. SECONDARY DIAGNOSES: 1. Obesity. 2. History of gout. STUDIES WHILE IN THE HOSPITAL: 1. EKG on 01/17/19 shows normal sinus rhythm with a rate of 91, QTc 443, Q waves and T-wave inversion in III. 2. Chest x-ray on 01/17/19 reads as minimal right basilar atelectasis. No evidence for pulmonary edema. 3. EKG on 01/17/19 shows normal sinus rhythm with rate of 99, QTc 442, Q waves and inverted T waves in III. 4. Transthoracic echocardiogram on 01/18/19 reads as the left ventricular cavity size is mildly reduced. Wall thickness is mildly increased. Systolic function is normal. The estimated ejection fraction is 60% to 65%. Wall motion is normal and there are no regional wall motion abnormalities. Right ventricular systolic function is normal. There is trace tricuspid regurgitation. Pulmonary artery systolic pressure cannot be accurately estimated. No prior echocardiogram to compare. 5. Nuclear cardiac stress test on 01/18/19 reads as no definite fixed or reversible perfusion defect. The TID ratio is elevated which can be associated with triple-vessel disease, though this may be artifactual. Assessment is low risk. HISTORY OF PRESENT ILLNESS AND HOSPITAL COURSE: Ms. Morrison is a 63-year-old female with past medical history of obesity and gout, who presented to the emergency room on 01/17/19 with complaints of chest pain. Please see the history and physical by Dr. Crane for complete summary of the events leading up to this hospitalization. In short, the patient developed pain after lunch which was radiating into her neck. She also started having numbness and tingling in her right arm. Pain persisted throughout the afternoon and so she presented to the emergency room. In the emergency room, she was given a dose of nitro which resolved the pain. In the emergency room, she was noted to have a negative troponin, although because of her risk factors including positive family history , the patient was admitted by the hospitalist service for an inpatient stress test. The patient had an uneventful night and was monitored on telemetry without any evidence of arrhythmias. She had two additional troponins which were flat at 0.00. She had an A1c which was noted to be 5.6. She had a lipid panel which showed triglycerides of 93, total cholesterol of 172, LDL of 111, and HDL of 42. Lab work was otherwise unremarkable. She was noted to be mildly tachycardic with her rates in the low 100s. This morning, the patient underwent a nuclear cardiac stress test with results noted above and the assessment was noted to be low risk. I did speak with the patient at length about her chest pain. It sounds as though the patient has experienced pain similar to the this in the past, though it has not lasted as long. She is a poor historian so her history is not entirely clear, but she does deny any history of GERD. She does note that the pain was a burning pain which radiated up into her throat. She has been noted to be hypertensive, and blood pressure responded well to metoprolol. On exam, the patient offers no complaint. She has no focal neurological deficits. Her heart is regular rate and rhythm without murmurs, rubs, or gallops. Her lungs are clear to auscultation without rhonchi, wheezes, or rub. Physical exam is otherwise benign. Ms. Morrison is stable for discharge today. Vital signs are as follows: Temp 98.0 , heart rate 92, respiratory rate 14, oxygen saturation 98% on room air, blood pressure 122/69. DISCHARGE MEDICATIONS: New medications: 1. Metoprolol tartrate 12.5 mg p.o. b.i.d. 2. Pantoprazole 40 mg p.o. daily. Continued medications: 1. Allopurinol 100 mg p.o. daily. 2. Naproxen 375 mg p.o. b.i.d. p.r.n. pain. DISCHARGE PLAN: Ms. Morrison will be discharged home. Activity will be as tolerated. Diet will be regular as tolerated, though I did discuss at length with the patient diet changes that she should incorporate as her A1c is borderline prediabetic and lipid panel is not ideal. According to the ASCVD Risk Algorithm, the patient does not require a statin at this time, so I think that diet changes are reasonable. I have prescribed the patient metoprolol tartrate, which she responded to well here in the hospital and has brought her down to a normotensive range. I have also prescribed pantoprazole as I do feel that it is highly likely that this chest pain may be gastrointestinal related and I think a trial of pantoprazole is warranted. She can continue her other usual medications. She will need to follow up with her primary care provider in the next 4 to 7 days. She has been advised to return to the emergency room or nearest hospital for any worsening symptoms, shortness of breath, lightheaded , dizziness, chest discomfort, high fevers, chills, night sweats, loss of consciousness, or any other worrisome signs or symptoms. DISCHARGE CONDITION: Stable. DISCHARGE DISPOSITION: Home. This is a summarized report of a complex medical history and hospital stay. For further details, please see the entire medical record. TIME SPENT: Approximately 45 minutes was spent on this discharge. JENNIFER PHAM NP [id number]/CPS #: [id number] NICOL[place]S
== END 2019-01-18 14:15 | disposition home or self-care (01) ==
LOC: ED 16:38 → MEDTELE 21:53
PROVIDERS: ADMIT Internal Medicine; ATTEND Internal Medicine
DX: R07.9 Chest pain, unspecified (principal); I10 Essential (primary) hypertension; E66.9 Obesity, unspecified; M10.9 Gout, unspecified; Z79.899 Other long term (current) drug therapy; R00.0 Tachycardia, unspecified
CPT/HCPCS: 36415; 71045; 78452; 80048; 80053; 80061; 83036; 84443; 84484; 85025; 85379; 93005; 93017; 93306; 96361; 96374; 99284; A9270-GY; A9502; C8929; G0378; J2405

== ENCOUNTER 2022-04-10 07:08 | Inpatient (IN) ==
[~2022-04-10 07:08] MED LIST: Buffered Lidocaine 1% SYRIN 1 ml INTRADERM ONE; Lactated Ringers 1000 ml BAG 1,000 ML IV SCH
[2022-04-10] MEDS ORDERED: Scopolamine 1 mg/72hr PATCH ONE (07:28)
[2022-04-10] MEDS ORDERED: Ondansetron 4 mg VIAL 2 MG/ML 2 ml VIAL ONE ×2 (07:29→07:48)
[2022-04-10] MEDS ORDERED: Dexamethasone IV 4 MG/ML VIAL 1 ml VIAL ONE ×3 (07:29→18:51)
[2022-04-10] MEDS ORDERED: Heparin 5000 UNITS/ML 1 mL VIAL ONE (07:29)
[2022-04-10] MEDS ORDERED: ceFAZolin 2 GM PREMIX 2 GM/50 ML BAG ONE (07:29)
[2022-04-10] MEDS ORDERED: Rocuronium 50 mg VIAL 10 mg/ml 5 ml VIAL (50 mg) ONE ×2 (07:48→09:32)
[2022-04-10] MEDS ORDERED: Propofol 10 MG/ML 20 ML BTL ONE (07:48)
[2022-04-10] MEDS ORDERED: Midazolam 2 mg/2 ml VIAL 1 mg/ml 2 ml VIAL (2 mg) ONE (07:48)
[2022-04-10] MEDS ORDERED: Lidocaine 2% PF 5 ML VIAL ONE (07:48)
[2022-04-10] MEDS ORDERED: fentaNYL 250 mcg/5 ml 50 MCG/ML 5 ml VIAL (250 MCG) ONE ×2 (07:48→09:36)
[2022-04-10] MEDS ORDERED: Bupivacaine 0.5% 50 ML MDV VIAL ONE (07:51)
[2022-04-10] MEDS ORDERED: Povidone Iodine 5% OPTH 30 ML BTL ONE (07:54)
[2022-04-10] MEDS ORDERED: Gentamicin ADULT 40 MG/ML VIAL (2 ML VIAL = 80 MG) ONE (07:54)
[2022-04-10] MEDS ORDERED: ceFAZolin VIAL VIAL ONE (07:55)
[2022-04-10] MEDS ORDERED: ISOSULFAN BLUE 1% 5 ML VIAL 10 MG/ML SUBCUT ONE (08:07)
[2022-04-10] MEDS ORDERED: Acetaminophen IV 1 GM/100ML 1,000 MG/100 ML BAG IV ONE (09:13)
[2022-04-10] MEDS ORDERED: HYDROmorphone 0.5 MG/0.5 ML SYRINGE ONE ×4 (09:54→09:55)
[2022-04-10] MEDS ORDERED: HYDROmorphone 1 MG/1 ML SYRINGE IV PRN (10:14)
[2022-04-10] MEDS ORDERED: Naloxone 0.4 mg VIAL 0.4 mg/ml 1 ml VIAL IV PRN (10:14)
[2022-04-10] MEDS ORDERED: ceFAZolin 1 GM ADVAN 1 GM ADDV.VIAL IVPB ONE (11:17)
[2022-04-10] MEDS ORDERED: Bupivacaine 0.25% SDV 30 ML ONE (11:17)
[2022-04-10] MEDS ORDERED: Morphine 2 MG/ML SYRINGE IV PRN (13:32)
[2022-04-10] MEDS ORDERED: Benzocaine/Menthol LOZ PO PRN (13:38)
[2022-04-10] MEDS ORDERED: Phenylephrine 40 mcg/mL 10mL (400mcg) SYRINGE ONE ×2 (13:51→16:25)
[2022-04-10] MEDS ORDERED: ceFAZolin 2 GM in NS PREMIX 2 GM/100 ML BAG IVPB ONE (16:28)
[2022-04-10] MEDS ORDERED: Prochlorperazine 5 mg/ml 2 ml VIAL (10 mg) ONE (18:51)
[2022-04-10] MEDS ORDERED: Prochlorperazine 5 mg/ml 2 ml VIAL (10 mg) IV PRN (18:53)
[2022-04-10] MEDS ORDERED: Dexamethasone IV 4 MG/ML VIAL 1 ml VIAL IV SLOW PU ONE (18:55)
[2022-04-10] MEDS: ceFAZolin 2 GM in NS PREMIX 2 GM/100 ML BAG IVPB SCH (21:44)
[2022-04-10] MEDS: Heparin 5000 UNITS/ML 1 mL VIAL SUBCUT SCH (21:50)
[2022-04-11] MEDS: ceFAZolin 2 GM in NS PREMIX 2 GM/100 ML BAG IVPB SCH ×2 (05:48→12:57)
[2022-04-11] MEDS: HYDROcodone/ACETAMIN 5/325 mg TAB PO PRN ×2 (05:55→14:26)
[2022-04-11] MEDS: Heparin 5000 UNITS/ML 1 mL VIAL SUBCUT SCH ×2 (05:59→12:57)
[2022-04-11] MEDS ORDERED: Pneumococcal Vac 23-Polyvalent IM ONE (09:00)
[2022-04-11] MEDS ORDERED: Influenza vaccine *QUAD* *2022-23* 0.5 ML SYRINGE IM ONE (09:00)
[2022-04-11 11:33] VITALS: BP 117/70
== END 2022-04-11 16:00 | disposition home or self-care (01) | DRG 362 ==
LOC: AA 07:08 → SSU 13:27
PROVIDERS: ADMIT Student in an Organized Health Care Education/Training Program; ATTEND Student in an Organized Health Care Education/Training Program